=== PATIENT | male | born 1995 | race Hispanic/Latino ===

== ENCOUNTER 2022-05-16 22:27 | Emergency (ER) | payer SELFPAY ==
[2022-05-16] MEDS ORDERED: Albuterol 2.5 MG/0.5 ML NEB ONE (22:38)
[2022-05-16] MEDS ORDERED: Ipratropium Bromide 2.5 ml Neb ONE (22:39)
[2022-05-16] MEDS ORDERED: methylPREDNISolone Sod Succ/PF 125 MG/2 ML VIAL ONE (23:13)
== END 2022-05-17 00:51 | disposition home or self-care (01) ==
LOC: ERS 22:27
DX: J45.901 Unspecified asthma with (acute) exacerbation (principal)
CPT/HCPCS: 71045; 93005; 94640; 96374; J2930; J7611